=== PATIENT | female | born 1985 | race Two or more races ===

== ENCOUNTER 2024-03-24 06:40 | Emergency (ER) | payer MEDICAID, SELFPAY ==
[2024-03-24 06:48] VITALS: BP 116/78; PULSE 82; RESP 18; TEMP 36.7; O2SAT 99
[2024-03-24 07:00] VITALS: PULSE 88; RESP 22; O2SAT 98
[2024-03-24 07:05] VITALS: BMI 37.8
[2024-03-24] MEDS: ALPRazoLAM 0.25 MG TABLET PO (07:33)
--- NOTE | 2024-03-24 09:17 | PD.EDANX ---
ED Anxiety RME/HPI General Chief Complaint: Anxiety Stated Complaint: ANXIETY Time Seen by Provider: 03/24/24 06:56 Arrival date/time: 03/24/24 06:40 38-year-old female presents to the emergency department complaint of anxiety patient reports that she is under a lot of stress patient also does admit to using methamphetamine last used 2 days ago. Patient reports no fever no nausea no vomiting no chest pain or shortness of breath Limitations: no limitations Related Data Previous Rx's ?Medication ?Instructions ?Recorded acetaminophen 650 mg 650 mg PO Q8H PRN fever or pain 06/15/20 tablet,extended release #30 tabs aluminum-mag hydroxide-simethicone 10 ml PO Q6H PRN dyspepsia #3,000 08/23/20 200 mg-200 mg-20 mg/5 mL oral susp mL (Maalox Advanced) azithromycin 250 mg tablet See Rx Instructions PO .COMPLEX #6 05/17/21 tabs ibuprofen 600 mg tablet 600 mg PO QID PRN fever or pain 05/17/21 #30 tabs ibuprofen 800 mg tablet 800 mg PO TID PRN pain #30 tabs 10/11/22 naproxen 500 mg tablet 500 mg PO BID PRN pain #30 tabs 01/14/23 Allergies Allergy/AdvReac Type Severity Reaction Status Date / Time No Known Allergies Allergy Verified 10/02/22 16:12 Review of Systems Review of Systems Systems Reviewed: All systems reviewed, normal except as documented Constitutional Constitutional: Reports system reviewed and no additional complaints, except as documented, Denies fever(s) and Denies headache(s) Eyes Eyes: Reports system reviewed and no additional complaints, except as documented and Denies blurry vision ENT Ears, Nose, Mouth, and Throat: Reports system reviewed and no additional complaints, except as documented, Denies headache(s), Denies nasal congestion and Denies nasal discharge Cardiovascular Cardiovascular: Reports system reviewed and no additional complaints, except as documented, Denies chest pain and Denies dyspnea Respiratory Respiratory: Reports system reviewed and no additional complaints, except as documented, Denies chest congestion, Denies cough and Denies dyspnea Gastrointestinal Gastrointestinal: Reports system reviewed and no additional complaints, except as documented and Denies abdominal pain Integumentary/Breasts Skin/Breast: Reports system reviewed and no additional complaints, except as documented and Denies rash Neurologic Neurologic: Reports system reviewed and no additional complaints, except as documented, Reports as per HPI and Denies headache(s) Psychiatric Psychiatric: Reports system reviewed and no additional complaints, except as documented and Reports anxiety Past Medical History Past Medical History NEUROLOGIC: Negative Neurological Disorders or Seizures CARDIAC: Negative Cardiac Disorders or Congestive Heart Failure RESPIRATORY: Positive Asthma; Negative Chronic Obstructive Pulmonary Disease (COPD) GENITOURINARY: Negative Renal Disease ENDOCRINE: Negative Diabetes Mellitus Type 1 or Diabetes Mellitus Type 2 HEMATOLOGIC: Negative Sickle Cell Disease PSYCHO/SOCIAL: Positive Anxiety OTHER HISTORY: Negative Blood Transfusions, Blood Transfusion Reaction or Anesthesia Reactions Social History SMOKING STATUS: Never smoker SUBSTANCE USE: does not use ED Exam General Limitations: Present no limitations General appearance: Present alert and in no apparent distress Head Head exam: Present atraumatic, normocephalic and normal inspection Eye Eye exam: Present normal appearance, PERRL and EOMI; Absent conjunctival injection ENT ENT exam: Present normal exam, normal oropharynx and mucous membranes moist Neck Neck exam: Present normal inspection, full ROM and trachea midline Chest Chest inspection: Present normal inspection and symmetric chest wall rise Respiratory Respiratory exam: Present normal lung sounds bilaterally; Absent respiratory distress Cardiovascular Cardiovascular exam: Present regular rate, normal rhythm and normal heart sounds Abdominal Exam Abdominal exam: Present soft and normal bowel sounds; Absent distention or tenderness Extremities Exam Extremities exam: Present normal inspection and full ROM Back Exam Back exam: Present normal inspection and full ROM Neurological Exam Neurological exam: Present alert, oriented X3, CN II-XII intact, normal gait and reflexes normal; Absent motor sensory deficit Psychiatric Psychiatric exam: Present anxious; Absent manic, homicidal ideation or suicidal ideation Skin Skin exam: Present warm, dry, intact and normal color Course Quality Measures none Orders Category Date Time Status ALPRazoLAM [Xanax] Med 03/24/24 07:12 Discontinued 0.25 mg PO X1 ONE Vital Signs Vital signs: Vital Signs Temperature 98.1 F 03/24/24 06:48 Pulse Rate 82 03/24/24 06:48 Respiratory Rate 18 03/24/24 06:48 Blood Pressure 116/78 03/24/24 06:48 Pulse Oximetry (%) 99 03/24/24 06:48 Oxygen Delivery Method Room Air 03/24/24 06:48 O2 saturation 99% room air within normal limits Anxiety MDM Narrative MDM Narrative: 38-year-old female presents to the emergency department complaint of anxiety patient reports that she is under a lot of stress patient also does admit to using methamphetamine last used 2 days ago. Patient reports no fever no nausea no vomiting no chest pain or shortness of breath On exam patient appears anxious I had a conversation with the patient about her anxiety I explained to the patient she should refrain from drug use as this does not help her anxiety Patient was given a Xanax here time reevaluation patient reports that she feels better Patient discharged home in no distress to follow-up with primary care doctor in the next 24 to 48 hours and for any worsening symptoms to return to the ER immediately Patient data External records reviewed:: [facility] previous records Clinical information provided by:: patient Social determinants that could affect healthcare access:: substance use Patient has the following chronic illnesses:: Substance abuse How is presenting disease/condition affected by chronic disease/condition?: no chronic disease Evaluation data The following diagnostics were reviewed and interpreted by me:: other (specify) (N/A) Lab and/or radiology exams considered but not ordered:: Consider not ordered Interpretation Summary: N/A Medications / Prescriptions Medications or Prescriptions considered but not ordered:: Given Medication administrations:: Medication Administration History Discontinued Medications Alprazolam (Alprazolam 0.25 Mg Tablet) 0.25 mg PO X1 ONE Stop: 03/24/24 07:13 Last Admin: 03/24/24 07:33 Dose: 0.25 mg Documented By: DAA Consultations Consultation(s) initiated? (list below): No Diagnosis Differential diagnosis anxiety: hyperventilation, panic disorder and acute anxiety Most likely diagnosis given after review of the tests above:: Anxiety Admission Indicated Admission indicated?: not indicated Admission Request Was there a request for admission?: No Disposition Plan Disposition Plan: Discharge Discharge Attestation Discharge Attestation: The patient and all family members were given an opportunity to ask questions and understood the discharge instructions. Discharge instructions specifically effects, indications for sooner follow up or return to the emergency department, and the expected course of current diagnosis. Patient condition: Stable Discharge Plan Plan Patient Disposition: HOME (Self Care) Disposition Comment: Stable Prescriptions/Referrals Prescriptions/Med Rec: No Action acetaminophen 650 mg tablet extended release 650 mg PO Q8H PRN (Reason: fever or pain) Qty: 30 0RF Rx Instructions: swallow whole; do not chew/break/dissolve/open alum-mag hydroxide-simeth [Maalox Advanced] 200-200-20 mg/5 mL suspension 10 ml PO Q6H PRN (Reason: dyspepsia) Qty: 3000 0RF azithromycin 250 mg tablet See Rx Instructions .ROUTE .COMPLEX Qty: 6 0RF Rx Instructions: For 250 mg dose pack: take 500 mg today (day 1), then 250 mg for 4 days (days 2-5) ibuprofen 600 mg tablet 600 mg PO QID PRN (Reason: fever or pain) Qty: 30 0RF ibuprofen 800 mg tablet 800 mg PO TID PRN (Reason: pain) Qty: 30 0RF naproxen 500 mg tablet 500 mg PO BID PRN (Reason: pain) Qty: 30 0RF Referrals: Virgilio Mack MD [Primary Care Provider] - In 1 week Problem List Clinical Impression: Anxiety reaction Patient/Caregiver Discharge Instructions Education Materials: ED Anxiety Reaction Additional Instructions: Please follow up with your primary care doctor in the next 24-48hrs for any worsening symptoms return here immediately Print Language: Urdu Stand Alone Forms: Che Award Info., Patient Portal Info Letter PA/SHAHIDA Supervising Physician ALISHA/SHAHIDA Supervising Physician: Dr. Romero
[2024-03-24 09:18] VITALS: BP 116/84; PULSE 77; RESP 17; TEMP 36.5; O2SAT 99
== END 2024-03-24 10:41 | disposition home or self-care (01) ==
PROVIDERS: Emergency Provider Emergency Medicine; PCP Family Medicine
DX: F41.1 Generalized anxiety disorder (principal)
CPT/HCPCS: 99283; A9270

== ENCOUNTER 2024-04-11 21:39 | Emergency (ER) | payer MEDICAID, SELFPAY ==
[2024-04-11 21:40] VITALS: BP 111/67; PULSE 117; RESP 18; TEMP 38.3; O2SAT 96; BMI 40.4
[2024-04-11 21:41] VITALS: PULSE 135; RESP 22; O2SAT 99
--- NOTE | 2024-04-11 22:13 | PD.EDURI ---
Upper Respiratory Inf. RME/HPI General Chief Complaint: Flu Like Symptoms Stated Complaint: BODYACHES/SOB Time Seen by Provider: 04/11/24 22:13 Arrival date/time: 04/11/24 21:39 RME / HPI RME / HPI Narrative: Dr. Darling?s Main ED Evaluation: 38yo female with a history of asthma presents to the ED for a chief complaint of chest pain. Patient states she's had intermittent chest pain when she breathes for the last 4 days. She endorses associated shortness of breath, intermittent wheezing, fever, chills, and a productive cough. She states she's taken Tylenol without any alleviation of symptoms, so she came in for evaluation. She denies any other associated symptoms. No known allergies. Related Data Previous Rx's ?Medication ?Instructions ?Recorded acetaminophen 650 mg 650 mg PO Q8H PRN fever or pain 06/15/20 tablet,extended release #30 tabs aluminum-mag hydroxide-simethicone 10 ml PO Q6H PRN dyspepsia #3,000 08/23/20 200 mg-200 mg-20 mg/5 mL oral susp mL (Maalox Advanced) azithromycin 250 mg tablet See Rx Instructions PO .COMPLEX #6 05/17/21 tabs ibuprofen 600 mg tablet 600 mg PO QID PRN fever or pain 05/17/21 #30 tabs ibuprofen 800 mg tablet 800 mg PO TID PRN pain #30 tabs 10/11/22 naproxen 500 mg tablet 500 mg PO BID PRN pain #30 tabs 01/14/23 albuterol sulfate 90 mcg/actuation 1 inh inhalation QID PRN shortness 04/11/24 aerosol inhaler of breath or wheezing #8.5 grams ibuprofen 600 mg tablet 600 mg PO Q6H PRN pain #30 tabs 04/11/24 Allergies Allergy/AdvReac Type Severity Reaction Status Date / Time No Known Allergies Allergy Verified 10/02/22 16:12 Review of Systems Review of Systems Systems Reviewed: All systems reviewed, normal except as documented Narrative Review of Systems: Gen: + fever, + chills, no weight loss EYES: No discharge, no visual changes, no pain HEENT: No ear pain, no congestion, no sore throat PULM: + shortness of breath, + cough, no congestion, + wheezing CV: + chest pain, no dyspnea on exertion, no palpitations GI: No nausea, no vomiting, no diarrhea, no pain, no constipation : No frequency, no urgency, no dysuria Musc/skel: No joint pain, no back pain Skin: No rash Psyc: No hallucinations, no depression Heme/Lymph: No easy bleeding or bruising tendencies Neuro: No weakness, no headache Past Medical History Past Medical History NEUROLOGIC: Negative Neurological Disorders or Seizures CARDIAC: Negative Cardiac Disorders or Congestive Heart Failure RESPIRATORY: Positive Asthma; Negative Chronic Obstructive Pulmonary Disease (COPD) GENITOURINARY: Negative Renal Disease ENDOCRINE: Negative Diabetes Mellitus Type 1 or Diabetes Mellitus Type 2 HEMATOLOGIC: Negative Sickle Cell Disease PSYCHO/SOCIAL: Positive Anxiety OTHER HISTORY: Negative Blood Transfusions, Blood Transfusion Reaction or Anesthesia Reactions Social History SMOKING STATUS: Current some day smoker SUBSTANCE USE: does not use ED Exam Narrative Physical exam: GENERAL APPEARANCE: alert and oriented x 4, well-developed, well-nourished, no acute distress HEENT: Normocephalic, atraumatic; pupils equal, round, reactive to light; EOMI; mucous membranes pink, moist; oropharynx clear NECK: Supple LUNGS: CTABL; no wheezes, no rales, no rhonchi HEART: Regular rate, regular rhythm; normal S1, S2; no murmurs ABDOMEN: non distended; normal BS; soft, no tenderness, no guarding, no rebound; no masses, no organomegaly, no hernia BACK: no CVA tenderness EXTREMITIES: atraumatic; no edema NEUROLOGIC: awake; alert and oriented x4; cranial nerves II-XII grossly intact; no focal sensory or motor deficits PSYCHIATRIC: appropriate mood and affect SKIN: warm, dry, normal color; no rashes Course Course Course Narrative: HCG is negative - Toradol ordered. Quality Measures none Orders Category Date Time Status Bedside COVID-19 Antigen Test NOW Care 04/11/24 21:58 Active Bedside Influenza A&B Antigen Test NOW Care 04/11/24 21:58 Completed HCG,Qualitative Serum Stat Lab 04/11/24 22:26 Completed ALBUTEROL RT 0.5ml [Proventil Rt 0.5ml] Med 04/11/24 23:12 Discontinued 2.5 mg INH X1 ONE HYDROcodone*/APAP 5/325 [Point 5/325] Med 04/11/24 22:20 Discontinued 1 tab PO X1 ONE Ketorolac Inj [Toradol Inj] Med 04/11/24 23:04 Discontinued 30 mg IM X1 ONE Sodium Chloride Rt Mellissa 0.9% [NS Rt Mellissa 0.9%] Med 04/11/24 23:12 Active 3 ml INH PRN PRN Vital Signs Vital signs: Vital Signs Temperature 100.9 F H 04/11/24 21:40 Pulse Rate 117 H 04/11/24 21:40 Respiratory Rate 18 04/11/24 21:40 Blood Pressure 111/67 04/11/24 21:40 Pulse Oximetry (%) 96 04/11/24 21:40 Oxygen Delivery Method Room Air 04/11/24 21:40 Pulse ox is 96% on room air, which is normal according to my interpretation. Upper Respiratory Infection MDM Narrative MDM Narrative:: Scribe Attestation: 04/11/24 - Whit Ramsay am scribing for and in the presence of Dr. Darling. Patient data External records reviewed:: [facility] previous records (Per chart review, patient was seen here on 03/24/24 for anxiety.) Clinical information provided by:: patient Social determinants that could affect healthcare access:: mental health Patient has the following chronic illnesses:: none How is presenting disease/condition affected by chronic disease/condition?: no chronic disease Evaluation data The following diagnostics were reviewed and interpreted by me:: lab results Lab and/or radiology exams considered but not ordered:: none Interpretation Summary: Bedside COVID is negative, Influenza B is positive, HCG is negative, according to my interpretation. Medications / Prescriptions Medications or Prescriptions considered but not ordered:: none Medication administrations:: Medication Administration History Sodium Chloride (Sodium Chloride Rt Mellissa 0.9% 3 Ml Nebu) 3 ml INH PRN PRN PRN Reason: SOLN Stop: 05/11/24 23:11 Last Admin: 04/11/24 23:34 Dose: 3 ml Documented By: SC Discontinued Medications Hydrocodone Bitart/Acetaminophen (Hydrocodone/Apap 5/325 Tablet) 1 tab PO X1 ONE Stop: 04/11/24 22:21 Last Admin: 04/11/24 22:25 Dose: 1 tab Documented By: DB Albuterol (Albuterol Rt 2.5 Mg/0.5 Ml Nebu) 2.5 mg INH X1 ONE Stop: 04/11/24 23:13 Last Admin: 04/11/24 23:34 Dose: 2.5 mg Documented By: SC Ketorolac Tromethamine (Ketorolac Inj 30 Mg/Ml Vial) 30 mg IM X1 ONE Stop: 04/11/24 23:05 Last Admin: 04/11/24 23:11 Dose: 30 mg Documented By: DB see above Consultations Consultation(s) initiated? (list below): No Diagnosis Upper Respiratory Differential Diagnosis: upper respiratory infection, viral infection, bronchitis, influenza and other (COVID, asthma exacerbation) Most likely diagnosis given after review of the tests above:: see below Admission Indicated Admission indicated?: not indicated Admission Request Was there a request for admission?: No Disposition Plan Disposition Plan: Discharge Discharge Attestation Discharge Attestation: The patient and all family members were given an opportunity to ask questions and understood the discharge instructions. Discharge instructions specifically effects, indications for sooner follow up or return to the emergency department, and the expected course of current diagnosis. Patient condition: Stable Discharge Plan Plan Patient Disposition: HOME (Self Care) Patient condition on transfer: Stable Prescriptions/Referrals Prescriptions/Med Rec: New ibuprofen 600 mg tablet 600 mg PO Q6H PRN (Reason: pain) Qty: 30 0RF albuterol sulfate 90 mcg/actuation HFA aerosol inhaler 1 inh inhalation QID PRN (Reason: shortness of breath or wheezing) Qty: 8.5 0RF No Action acetaminophen 650 mg tablet extended release 650 mg PO Q8H PRN (Reason: fever or pain) Qty: 30 0RF Rx Instructions: swallow whole; do not chew/break/dissolve/open alum-mag hydroxide-simeth [Maalox Advanced] 200-200-20 mg/5 mL suspension 10 ml PO Q6H PRN (Reason: dyspepsia) Qty: 3000 0RF azithromycin 250 mg tablet See Rx Instructions .ROUTE .COMPLEX Qty: 6 0RF Rx Instructions: For 250 mg dose pack: take 500 mg today (day 1), then 250 mg for 4 days (days 2-5) ibuprofen 600 mg tablet 600 mg PO QID PRN (Reason: fever or pain) Qty: 30 0RF ibuprofen 800 mg tablet 800 mg PO TID PRN (Reason: pain) Qty: 30 0RF naproxen 500 mg tablet 500 mg PO BID PRN (Reason: pain) Qty: 30 0RF Referrals: Virgilio Mack MD [Primary Care Provider] - In 1 week Problem List Clinical Impression: Influenza B Patient/Caregiver Discharge Instructions Education Materials: ED Influenza (Adult) Print Language: Estonian Stand Alone Forms: Che Award Info., Patient Portal Info Letter
[2024-04-11] MEDS: HYDROcodone/APAP 5/325 TABLET 1 TAB PO (22:25)
[2024-04-11 22:59] LABS: HCG,Qualitative Serum Negative
[2024-04-11 23:02] VITALS: BP 111/64; PULSE 106; RESP 16; TEMP 37.2; O2SAT 98
[2024-04-11] MEDS: KETOROLAC INJ 30 MG/ML VIAL IM (23:11)
[2024-04-11 23:34] VITALS: PULSE 105; PULSE 106; RESP 20; O2SAT 96
[2024-04-11] MEDS: ALBUTEROL RT 2.5 MG/0.5 ML NEBU INH (23:34)
[2024-04-11] MEDS: SODIUM CHLORIDE RT SOL 0.9% 3 ML NEBU INH (23:34)
[2024-04-12 00:19] VITALS: BP 105/77; PULSE 87; RESP 16; TEMP 37.1; O2SAT 99
== END 2024-04-12 00:20 | disposition home or self-care (01) ==
PROVIDERS: Emergency Provider Emergency Medicine; PCP Family Medicine
DX: J10.1 Influenza due to other identified influenza virus with other respiratory manifestations (principal); F17.210 Nicotine dependence, cigarettes, uncomplicated
CPT/HCPCS: 36415; 84703; 87400; 87811; 94640; 96372; 99283; J1885; A9270

== ENCOUNTER 2024-09-05 23:08 | Emergency (ER) | payer MEDICAID, SELFPAY ==
[2024-09-05 23:08] VITALS: BMI 40.4
[2024-09-06 00:25] VITALS: BP 144/91; PULSE 85; RESP 18; TEMP 36.6; O2SAT 97
[2024-09-06] MEDS: ONDANSETRON ODT 4 MG TABRAP PO (01:09)
[2024-09-06] MEDS: FAMOTIDINE 20 MG TABLET 40 MG PO (01:10)
[2024-09-06] MEDS: DICYCLOMINE 10 MG CAPSULE PO (01:10)
[2024-09-06 01:18] LABS: Basophils # (Auto) 0.1 Thou/mm3 (0.0-0.2); Basophils % (Auto) 1 % (0-2.5); Eosinophils # (Auto) 0.4 Thou/mm3 (0.0-0.5); Eosinophils % (Auto) 4 % (0-10); Hematocrit 43.8 % (36.0-46.0); Hemoglobin 14.9 g/dL (12.0-16.0); Immature Granulocytes % (Auto) 0 % (0-0); Immature Granulocytes Auto 0.03 Thou/mm3 (0.00-0.00); Lymphocytes # (Auto) 2.8 Thou/mm3 (1.0-4.8); Lymphocytes % (Auto) 27 % (10-50); Mean Corpuscular Hemoglobin 27.7 pg (25.0-35.0); Mean Corpuscular Volume 81 fL (80-100); Monocytes # (Auto) 0.7 Thou/mm3 (0.0-0.8); Monocytes % (Auto) 7 % (0-12); Neutrophils # (Auto) 6.2 Thou/mm3 (1.8-7.7); Neutrophils % (Auto) 61 % (37-80); Nucleated Red Blood Cell % 0 /100 WBC (0); Platelet Count 397 Thou/mm3 (140-440); RDW Standard Deviation 42.2 fL (36.4-46.3); Red Blood Count 5.38 Miln/mm3 (4.00-5.20); White Blood Count 10.1 Thou/mm3 (3.6-11.0)
[2024-09-06 01:21] LABS: Collection Type, Urine Clean Catch
[2024-09-06 01:38] LABS: Alanine Aminotransferase 23 U/L (10-49); Albumin, Serum 4.7 gm/dL (3.5-5.0); Albumin/Globulin Ratio 1.4 (1.2-2.2); Alkaline Phosphatase 125 U/L (46-116); Anion Gap 7 (7-16); Aspartate Amino Transferase 21 U/L (0-34); BUN/Creatinine Ratio 8 Ratio (12-20); Bilirubin,Total 0.4 mg/dL (0.3-1.2); Blood Urea Nitrogen 6 mg/dL (9-23); Calcium 9.3 mg/dL (8.3-10.6); Calcium (Corrected) 9.3 mg/dL (8.5-10.1); Carbon Dioxide 29.6 mMol/L (20.0-31.0); Chloride 102 mMol/L (98-107); Creatinine (Component) 0.8 mg/dL (0.6-1.3); Estimated Creatinine Clearance 93.6 mL/min (>60); Globulin 3.3 gm/dL (2.3-3.5); Glucose 99 mg/dL (74-106); Lipase 32 U/L (12-53); Osmolality,Calculated 275 (275-295); Potassium 3.4 mMol/L (3.4-5.1); Sodium 139 mMol/L (136-145); eGFR > 60 See Note
[2024-09-06 01:43] LABS: Bacteria,Urine 4+; Bilirubin,Urine Negative (Negative); Blood,Urine Negative (Negative); Color,Urine Lt-Yellow (Lt Yel-Yel); Glucose, Urine Negative (Negative); Ketones,Urine Trace (Negative); Leukocyte Esterase,Urine Positive (Negative); Nitrite,Urine Negative (Negative); Protein,Urine Negative (Neg - Trace); RBC,Urine 100 /hpf (0-3); Specific Gravity,Urine 1.011 (1.001-1.035); Squamous Epithelial Cell,Urine 16 /hpf (0-5); Urobilinogen,Urine Negative mg/dL (0.0-1.0); WBC,Urine 45 /hpf (0-5)
[2024-09-06 01:44] LABS: Clarity,Urine Turbid (Clear/Hazy)
[2024-09-06 02:01] LABS: Amphetamine/Methamp Scrn,U Positive (Negative); Barbiturate Screen,Urine Negative (Negative); Benzodiazepines Screen,Urine Negative (Negative); Benzoylecgonine Screen, Ur Negative (Negative); Fentanyl Screen,Urine Negative (Negative); Opiate Screen,Urine Negative (Negative); THC Screen,Urine Negative (Negative)
[2024-09-06 02:17] LABS: HCG Qualitative,Urine Negative
--- NOTE | 2024-09-06 05:55 | EDNOTE_ITS ---
Nausea/Vomit./Diarrhea-RME/HPI General Chief complaint: Nausea/Vomiting/Diarrhea Stated complaint: VOMITING X2 DAYS Time Seen by Provider: 09/06/24 00:47 Arrival date/time: 09/05/24 23:08 39F with history of meth use, anxiety, and asthma presents to ED with 2 days of N/V, ab cramping, and non-bloody diarrhea. Patient denies dysuria and vaginal bleeding. Limitations: no limitations Related Data Previous Rx's ?Medication ?Instructions ?Recorded acetaminophen 650 mg 650 mg PO Q8H PRN fever or p ain 06/15/20 tablet,extended release #30 tabs aluminum-mag hydroxide-simethicone 10 ml PO Q6H PRN dy spepsia #3,000 08/23/20 200 mg-200 mg-20 mg/5 mL oral susp mL (Maalox Advanced) azithromycin 250 mg tablet See Rx Instructions PO .COM PLEX #6 05/17/21 tabs ibuprofen 600 mg tablet 600 mg PO QID PRN fever or p ain 05/17/21 #30 tabs ibuprofen 800 mg tablet 800 mg PO TID PRN pain #30 t abs 10/11/22 naproxen 500 mg tablet 500 mg PO BID PRN pain #30 t abs 01/14/23 albuterol sulfate 90 mcg/actuation 1 inh inhalation QI D PRN shortness 04/11/24 aerosol inhaler of breath or wheezing #8.5 g lisa ibuprofen 600 mg tablet 600 mg PO Q6H PRN pain #30 t abs 04/11/24 ondansetron 4 mg disintegrating 4 mg PO Q8H PRN nausea and 09/06/24 tablet vomiting #14 tabs Allergies Allergy/AdvReac Type Severity Reaction Status Date / Time No Known Allergies Allergy Verified 10/02/22 16:12 Review of Systems Review of Systems Systems Reviewed: All systems reviewed, normal except as documented Constitutional Constitutional: Reports system reviewed and no additional complaints, except as documented, Denies fever(s) and Denies headache(s) ENT Ears, Nose, Mouth, and Throat: Denies disequilibrium and Denies headache(s) Cardiovascular Cardiovascular: Reports system reviewed and no additional complaints, except as documented, Denies chest pain and Denies dyspnea Respiratory Respiratory: Reports system reviewed and no additional complaints, except as documented, Denies cough and Denies dyspnea Gastrointestinal Gastrointestinal: Reports system reviewed and no additional complaints, except as documented, Reports as per HPI, Reports abdominal pain, Reports diarrhea, Reports nausea and Reports vomiting Neurologic Neurologic: Reports system reviewed and no additional complaints, except as documented, Denies confusion, Denies disequilibrium and Denies headache(s) Psychiatric Psychiatric: Denies confusion Past Medical History Past Medical History NEUROLOGIC: Negative Neurological Disorders or Seizures CARDIAC: Negative Cardiac Disorders or Congestive Heart Failure RESPIRATORY: Positive Asthma; Negative Chronic Obstructive Pulmonary Disease (COPD) GENITOURINARY: Negative Renal Disease ENDOCRINE: Negative Diabetes Mellitus Type 1 or Diabetes Mellitus Type 2 HEMATOLOGIC: Negative Sickle Cell Disease PSYCHO/SOCIAL: Positive Anxiety OTHER HISTORY: Negative Blood Transfusions, Blood Transfusion Reaction or Anesthesia Reactions Social History SMOKING STATUS: Never smoker SUBSTANCE USE: does not use ED Exam General Limitations: Present no limitations General appearance: Present alert and in no apparent distress Head Head exam: Present atraumatic Eye Eye exam: Present normal appearance, PERRL and EOMI ENT ENT exam: Present normal exam, normal oropharynx and mucous membranes moist Neck Neck exam: Present normal inspection, full ROM and trachea midline Chest Chest inspection: Present normal inspection and symmetric chest wall rise Respiratory Respiratory exam: Present normal lung sounds bilaterally Cardiovascular Cardiovascular exam: Present regular rate, normal rhythm and normal heart sounds Abdominal Exam Abdominal exam: Present soft and normal bowel sounds Extremities Exam Extremities exam: Present normal inspection and full ROM Back Exam Back exam: Present normal inspection and full ROM Neurological Exam Neurological exam: Present alert, oriented X3 and CN II-XII intact Psychiatric Psychiatric exam: Present normal affect and normal mood Skin Skin exam: Present warm, dry, intact and normal color Course Quality Measures none Orders Category Date Time Status CBC Stat Lab 09/06/24 01:02 Completed CMP [Comprehensive Metabolic Panel] Stat Lab 09/06/24 01:02 Completed Drug Screen,Urine Stat Lab 09/06/24 01:09 Completed HCG Qualitative,Urine Stat Lab 09/06/24 01:09 Completed Lipase Stat Lab 09/06/24 01:02 Completed UA [Urinalysis] Stat Lab 09/06/24 01:09 Completed Dicyclomine [Bentyl] Med 09/06/24 00:52 Discontinued 10 mg PO X1 ONE Famotidine [Pepcid] Med 09/06/24 00:52 Discontinued 40 mg PO X1 ONE Ondansetron Odt [Zofran Odt] Med 09/06/24 00:52 Discontinued 4 mg PO X1 ONE Vital Signs Vital signs: Vital Signs Temperature 98 F 09/06/24 00:25 Pulse Rate 85 09/06/24 00:25 Respiratory Rate 18 09/06/24 00:25 Blood Pressure 144/91 H 09/06/24 00:25 Pulse Oximetry (%) 97 09/06/24 00:25 Oxygen Delivery Method Room Air 09/06/24 00:25 O2 at 97% on RA and WNLs Nausea/Vomiting/Diarrhea MDM Narrative MDM Narrative:: 39F with history of meth use, anxiety, and asthma presents to ED with 2 days of N/V, ab cramping, and non-bloody diarrhea. Patient denies dysuria and vaginal bleeding. Physical exam reveals no ab tenderness. Patient is afebrile, calm, and alert. No leukocytosis. CMP unremarkable. Lipase normal. UA contaminated. HCG neg. PO challenge passed. Patient data External records reviewed:: [facility] previous records Clinical information provided by:: patient Social determinants that could affect healthcare access:: substance use Patient has the following chronic illnesses:: meth use, anxiety, and asthma How is presenting disease/condition affected by chronic disease/condition?: exacerbated by Evaluation data The following diagnostics were reviewed and interpreted by me:: lab results Lab and/or radiology exams considered but not ordered:: ordered Interpretation Summary: above Medications / Prescriptions Medications / Prescriptions considered but not ordered:: ordered Medication administrations:: Medication Administration History Discontinued Medications Dicyclomine HCl (Dicyclomine 10 Mg Capsule) 10 mg PO X1 ONE Stop: 09/06/24 00:53 Last Admin: 09/06/24 01:10 Dose: 10 mg Documented By: THOMAS Famotidine (Famotidine 20 Mg Tablet) 40 mg PO X1 ONE Stop: 09/06/24 00:53 Last Admin: 09/06/24 01:10 Dose: 40 mg Documented By: THOMAS Ondansetron HCl (Ondansetron Odt 4 Mg Tabrap) 4 mg PO X1 ONE; Protocol Stop: 09/06/24 00:53 Last Admin: 09/06/24 01:09 Dose: 4 mg Documented By: THOMAS above Consultations Consultation(s) initiated? (list below): No Diagnosis Nausea Differential Diagnosis: traveler's diarrhea, food poisoning, gastroenteritis, clostridium difficile infection, drug-induced nausea and vomiting and dehydration Most likely diagnosis given after review of the tests above:: gastroenteritis Admission Indicated Admission indicated?: not indicated Admission Request Was there a request for admission?: No Disposition Plan Disposition Plan: Discharge Discharge Attestation Discharge Attestation: The patient and all family members were given an opportunity to ask questions and understood the discharge instructions. Discharge instructions specifically effects, indications for sooner follow up or return to the emergency department, and the expected course of current diagnosis. Patient condition: Stable Discharge Plan Plan Patient Disposition: HOME (Self Care) Disposition Comment: Stable Prescriptions/Referrals Prescriptions/Med Rec: New ondansetron 4 mg tablet,disintegrating 4 mg PO Q8H PRN (Reason: nausea and vomiting) Qty: 14 0RF No Action acetaminophen 650 mg tablet extended release 650 mg PO Q8H PRN (Reason: fever or pain) Qty: 30 0RF Rx Instructions: swallow whole; do not chew/break/dissolve/open alum-mag hydroxide-simeth [Maalox Advanced] 200-200-20 mg/5 mL suspension 10 ml PO Q6H PRN (Reason: dyspepsia) Qty: 3000 0RF azithromycin 250 mg tablet See Rx Instructions .ROUTE .COMPLEX Qty: 6 0RF Rx Instructions: For 250 mg dose pack: take 500 mg today (day 1), then 250 mg for 4 days (days 2-5) ibuprofen 600 mg tablet 600 mg PO QID PRN (Reason: fever or pain) Qty: 30 0RF ibuprofen 800 mg tablet 800 mg PO TID PRN (Reason: pain) Qty: 30 0RF naproxen 500 mg tablet 500 mg PO BID PRN (Reason: pain) Qty: 30 0RF ibuprofen 600 mg tablet 600 mg PO Q6H PRN (Reason: pain) Qty: 30 0RF albuterol sulfate 90 mcg/actuation HFA aerosol inhaler 1 inh inhalation QID PRN (Reason: shortness of breath or wheezing) Qty: 8.5 0RF Referrals: No Primary/Family,Physician [Primary Care Provider] - In 1 week Problem List Clinical Impression: Gastroenteritis Patient/Caregiver Discharge Instructions Education Materials: ED Diarrhea, Viral (Adult) Additional Instructions: Please follow-up with PCP within 24-48 hours and return immediately if symptoms worsen. Keep hydrated. Print Language: Kinyarwanda Stand Alone Forms: Patient Portal Info Letter PA/SHAHIDA Supervising Physician PA/STUDY ASSISTANT Supervising Physician: Dr. Storey
== END 2024-09-06 03:29 | disposition home or self-care (01) ==
PROVIDERS: Physician Assistant; Emergency Provider Emergency Medicine
DX: K52.9 Noninfective gastroenteritis and colitis, unspecified (principal)
CPT/HCPCS: 36415; 80053; 80307; 81001; 81025; 83690; 85025; 99283; Q0162; A9270

== ENCOUNTER 2024-09-21 22:01 | Emergency (ER) | payer MEDICAID, SELFPAY ==
[2024-09-21 22:05] VITALS: BMI 40.4
[2024-09-21 22:06] VITALS: BP 136/91; PULSE 84; RESP 18; TEMP 36.7; O2SAT 96
--- NOTE | 2024-09-21 22:25 | EDNOTE_ITS ---
ED General RME/HPI General Chief complaint: Skin/Abscess/Foreign Body Stated complaint: poss FB in L ear Time Seen by Provider: 09/21/24 22:11 Arrival date/time: 09/21/24 22:01 39-year-old female presents to the ED with a complaint of left ear possible foreign body. She had her earbuds in and went to remove them, the plastic earpiece was missing. She is unable to find it and believes it to be still stuck in the ear canal. She has increasing pain to the left ear area especially with movement of the ear. She has had no drainage. Mode of arrival: ambulatory Limitations: no limitations Related Data Previous Rx's ?Medication ?Instructions ?Recorded acetaminophen 650 mg 650 mg PO Q8H PRN fever or p ain 06/15/20 tablet,extended release #30 tabs aluminum-mag hydroxide-simethicone 10 ml PO Q6H PRN dy spepsia #3,000 08/23/20 200 mg-200 mg-20 mg/5 mL oral susp mL (Maalox Advanced) azithromycin 250 mg tablet See Rx Instructions PO .COM PLEX #6 05/17/21 tabs ibuprofen 600 mg tablet 600 mg PO QID PRN fever or p ain 05/17/21 #30 tabs ibuprofen 800 mg tablet 800 mg PO TID PRN pain #30 t abs 10/11/22 naproxen 500 mg tablet 500 mg PO BID PRN pain #30 t abs 01/14/23 albuterol sulfate 90 mcg/actuation 1 inh inhalation QI D PRN shortness 04/11/24 aerosol inhaler of breath or wheezing #8.5 g lisa ibuprofen 600 mg tablet 600 mg PO Q6H PRN pain #30 t abs 04/11/24 ondansetron 4 mg disintegrating 4 mg PO Q8H PRN nausea and 09/06/24 tablet vomiting #14 tabs ibuprofen 600 mg tablet 600 mg PO Q8H PRN pain #30 t abs 09/21/24 [id number] 3.3 4 drp otic (ear) QID O titis 09/21/24 mg-3 mg-10 mg-0.5 mg/mL ear externa #10 mL drops,susp (Cortisporin-TC) Allergies Allergy/AdvReac Type Severity Reaction Status Date / Time No Known Allergies Allergy Verified 09/21/24 22:04 Review of Systems Review of Systems Systems Reviewed: All systems reviewed, normal except as documented Past Medical History Past Medical History NEUROLOGIC: Negative Neurological Disorders or Seizures CARDIAC: Negative Cardiac Disorders or Congestive Heart Failure RESPIRATORY: Positive Asthma; Negative Chronic Obstructive Pulmonary Disease (COPD) GENITOURINARY: Negative Renal Disease ENDOCRINE: Negative Diabetes Mellitus Type 1 or Diabetes Mellitus Type 2 HEMATOLOGIC: Negative Sickle Cell Disease PSYCHO/SOCIAL: Positive Anxiety OTHER HISTORY: Negative Blood Transfusions, Blood Transfusion Reaction or Anesthesia Reactions Social History SMOKING STATUS: Never smoker SUBSTANCE USE: does not use ED Exam Narrative Physical exam: Exam reveals 39-year-old female, no acute distress, nontoxic and afebrile. Right canal and TM clear. Left canal without foreign body in the canal and TM clear. Mild pain with traguS and pinna movement. No preauricular or cervical adenopathy. General Limitations: Present no limitations Course Course Course Narrative: Patient was given ibuprofen 600 mg p.o. as well as Cortisporin otic solution to the left ear. Quality Measures none Orders Category Date Time Status Ibuprofen Tab [Motrin Tab] Med 09/21/24 22:32 Discontinued 600 mg PO X1 ONE Joe/Poly/Hc Otic Mellissa [Cortisporin Otic Mellissa] Med 09/21/24 22:28 Discontinued 4 drop LEFT EAR X1 ONE Vital Signs Vital signs: Vital Signs Temperature 98.1 F 09/21/24 22:06 Pulse Rate 84 09/21/24 22:06 Respiratory Rate 18 09/21/24 22:06 Blood Pressure 136/91 H 09/21/24 22:06 Pulse Oximetry (%) 96 09/21/24 22:06 Oxygen Delivery Method CPAP 09/21/24 22:06 Discharge Plan Plan Patient Disposition: HOME (Self Care) Discharge Disposition comment: Stable and improved Prescriptions/Referrals Prescriptions/Med Rec: New Cortisporin-TC 3.3-3-10-0.5 mg/mL drops,suspension 4 drp otic (ear) QID Qty: 10 0RF ibuprofen 600 mg tablet 600 mg PO Q8H PRN (Reason: pain) Qty: 30 0RF No Action acetaminophen 650 mg tablet extended release 650 mg PO Q8H PRN (Reason: fever or pain) Qty: 30 0RF Rx Instructions: swallow whole; do not chew/break/dissolve/open alum-mag hydroxide-simeth [Maalox Advanced] 200-200-20 mg/5 mL suspension 10 ml PO Q6H PRN (Reason: dyspepsia) Qty: 3000 0RF azithromycin 250 mg tablet See Rx Instructions .ROUTE .COMPLEX Qty: 6 0RF Rx Instructions: For 250 mg dose pack: take 500 mg today (day 1), then 250 mg for 4 days (days 2-5) ibuprofen 600 mg tablet 600 mg PO QID PRN (Reason: fever or pain) Qty: 30 0RF ibuprofen 800 mg tablet 800 mg PO TID PRN (Reason: pain) Qty: 30 0RF naproxen 500 mg tablet 500 mg PO BID PRN (Reason: pain) Qty: 30 0RF ibuprofen 600 mg tablet 600 mg PO Q6H PRN (Reason: pain) Qty: 30 0RF albuterol sulfate 90 mcg/actuation HFA aerosol inhaler 1 inh inhalation QID PRN (Reason: shortness of breath or wheezing) Qty: 8.5 0RF ondansetron 4 mg tablet,disintegrating 4 mg PO Q8H PRN (Reason: nausea and vomiting) Qty: 14 0RF Referrals: Virgilio Mack MD [Primary Care Provider] - In 1 week Problem List Clinical Impression: Otitis externa of left ear Patient/Caregiver Discharge Instructions Education Materials: ED External Ear Infection (Adult) Additional Instructions: Follow-up with your primary care physician in 24 to 48 hours. Return to the ED for any new or worsening symptoms. Print Language: Italian Stand Alone Forms: Che Award Info., Patient Portal Info Letter PA/ARC CUTTER Supervising Physician PA/ARC CUTTER Supervising Physician: Dr Ruano MDM Narrative [facility] hospital course (for use when minimal MDM required): 39-year-old female presents to the ED with a complaint of left ear possible foreign body. She had her earbuds in and went to remove them, the plastic earpiece was missing. She is unable to find it and believes it to be still st uck in the ear canal. She has increasing pain to the left ear area especially with movement of the ear. She has had no drainage. Exam reveals 39-year-old female, no acute distress, nontoxic and afebrile. Right canal and TM clear. Left canal without foreign body in the canal and TM clear. Mild pain with tragus and pinna movement. No preauricular or cervical adenopathy. Clinical Information Provided by: patient Medical Records reviewed None Meds/Rx considered, not ordered None Labs/Rad/Tests considered, not ordered None Chronic Illness/Social Conditions which may negatively complicate care or outcome(s)-explain: None or not applicable EKG EKG not done Labs Labs: none Imaging Imaging interpretation: none or see narrative above Medication Administration(s) Medication Administration History Discontinued Medications Ibuprofen (Ibuprofen Tab 600 Mg Tablet) 600 mg PO X1 ONE Stop: 09/21/24 22:33 Last Admin: 09/21/24 22:40 Dose: 600 mg Documented By: THOMAS Neomycin/Polymyxin/Hydrocortisone (Joe/Poly/Hc (Cortisporin) Otic Mellissa 10 Ml Btl) 4 drop LEFT EAR X1 ONE Stop: 09/21/24 22:29 Last Admin: 09/21/24 22:41 Dose: 4 drops Documented By: THOMAS Comments: left ear As noted above Diagnosis Differential Diagnosis ED Complaint MDM: Foreign body left ear canal, left ear canal abrasion, otitis externa Diagnoses ruled out and/or further discussions: Foreign body left ear canal
[2024-09-21] MEDS: IBUPROFEN TAB 600 MG TABLET PO (22:40)
[2024-09-21] MEDS: NEO/POLY/HC (Cortisporin) OTIC SOL 10 ML BTL 4 DROP LEFT EAR (22:41)
== END 2024-09-21 22:46 | disposition home or self-care (01) ==
PROVIDERS: Emergency Provider Emergency Medicine; PCP Family Medicine
DX: H60.92 Unspecified otitis externa, left ear (principal)
CPT/HCPCS: 99282; A9270

== ENCOUNTER 2025-02-07 12:38 | Emergency (ER) | payer MEDICAID, SELFPAY ==
[2025-02-07 12:39] VITALS: BMI 42.4
[2025-02-07 14:01] VITALS: BP 119/80; PULSE 86; RESP 18; TEMP 37; O2SAT 98
--- NOTE | 2025-02-07 14:47 | EDNOTE_ITS ---
ED General RME/HPI General Chief complaint: General Adult/Misc Complain Stated complaint: LIGHTHEADED X4 DAYS Time Seen by Provider: 02/07/25 14:03 Arrival date/time: 02/07/25 12:38 This is a 39-year-old female that comes in with complaints of anxiety. Patient states she was taking BuSpar before but is no longer taking it patient denies chest pain shortness of breath. 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 Patient states that the other caretakers have not been available and she has been having to take care of patient by herself. Patient states she has been overwhelmed and has not slept well. Related Data Previous Rx's ?Medication ?Instructions ?Recorded acetaminophen 650 mg 650 mg PO Q8H PRN fever or p ain 06/15/20 tablet,extended release #30 tabs aluminum-mag hydroxide-simethicone 10 ml PO Q6H PRN dy spepsia #3,000 08/23/20 200 mg-200 mg-20 mg/5 mL oral susp mL (Maalox Advanced) azithromycin 250 mg tablet See Rx Instructions PO .COM PLEX #6 05/17/21 tabs ibuprofen 600 mg tablet 600 mg PO QID PRN fever or p ain 05/17/21 #30 tabs ibuprofen 800 mg tablet 800 mg PO TID PRN pain #30 t abs 10/11/22 naproxen 500 mg tablet 500 mg PO BID PRN pain #30 t abs 01/14/23 albuterol sulfate 90 mcg/actuation 1 inh inhalation QI D PRN shortness 04/11/24 aerosol inhaler of breath or wheezing #8.5 g lisa ibuprofen 600 mg tablet 600 mg PO Q6H PRN pain #30 t abs 04/11/24 ondansetron 4 mg disintegrating 4 mg PO Q8H PRN nausea and 09/06/24 tablet vomiting #14 tabs ibuprofen 600 mg tablet 600 mg PO Q8H PRN pain #30 t abs 09/21/24 [id number] 3.3 4 drp otic (ear) QID O titis 09/21/24 mg-3 mg-10 mg-0.5 mg/mL ear externa #10 mL drops,susp (Cortisporin-TC) Allergies Allergy/AdvReac Type Severity Reaction Status Date / Time No Known Allergies Allergy Verified 02/13/25 10:29 Review of Systems Review of Systems Systems Reviewed: All systems reviewed, normal except as documented Past Medical History Past Medical History NEUROLOGIC: Negative Neurological Disorders or Seizures CARDIAC: Negative Cardiac Disorders or Congestive Heart Failure RESPIRATORY: Positive Asthma; Negative Chronic Obstructive Pulmonary Disease (COPD) GENITOURINARY: Negative Renal Disease ENDOCRINE: Negative Diabetes Mellitus Type 1 or Diabetes Mellitus Type 2 HEMATOLOGIC: Negative Sickle Cell Disease PSYCHO/SOCIAL: Positive Anxiety OTHER HISTORY: Negative Blood Transfusions, Blood Transfusion Reaction or Anesthesia Reactions Social History SMOKING STATUS: Never smoker SUBSTANCE USE: does not use ED Exam Narrative Physical exam: VITAL SIGNS: Reviewed. GENERAL APPEARANCE: Alert and interactive, follows commands, no acute distress, HEAD AND FACE: Non-traumatic. ENT: PERRL, conjuctiva pink and clear, eyelid no trauma, Mucous membrane moist. NECK: Supple, nontender, no nuchal rigidity. CHEST: No tenderness, no crepitus, no paradoxical movement, no retractions. LUNGS: Clear, well ventilated, symmetric, no rales, no wheezing, no rhonchi, no stridor, good breath sounds bilaterally. HEART: Regular rate, regular rhythm, no murmur, no gallops. ABDOMEN: Soft, nondistended, no guarding, nontender NEUROLOGICAL: Gross motor function intact sensory function intact, Appropriate for age. MUSCULOSKELETAL: low back nontender, full range of motion. EXTREMITIES: No redness no swelling no skin breakdown on bilateral foot and leg. Distal neurovascular status intact bilateral foot SKIN: Color pink, dry, no rash, no lacerations, no abrasions, no contusions. Course Quality Measures none Orders Category Date Time Status LORazepam [Ativan] Med 02/07/25 14:46 Discontinued 1 mg PO X1 ONE Vital Signs Vital signs: Vital Signs Temperature 98.6 F 02/07/25 14:01 Pulse Rate 86 02/07/25 14:01 Respiratory Rate 18 02/07/25 14:01 Blood Pressure 119/80 02/07/25 14:01 Pulse Oximetry (%) 98 02/07/25 14:01 Oxygen Delivery Method Room Air 02/07/25 14:01 Discharge Plan Plan Patient Disposition: HOME (Self Care) Patient condition on transfer: Stable Prescriptions/Referrals Prescriptions/Med Rec: No Action acetaminophen 650 mg tablet extended release 650 mg PO Q8H PRN (Reason: fever or pain) Qty: 30 0RF Rx Instructions: swallow whole; do not chew/break/dissolve/open alum-mag hydroxide-simeth [Maalox Advanced] 200-200-20 mg/5 mL suspension 10 ml PO Q6H PRN (Reason: dyspepsia) Qty: 3000 0RF azithromycin 250 mg tablet See Rx Instructions .ROUTE .COMPLEX Qty: 6 0RF Rx Instructions: For 250 mg dose pack: take 500 mg today (day 1), then 250 mg for 4 days (days 2-5) ibuprofen 600 mg tablet 600 mg PO QID PRN (Reason: fever or pain) Qty: 30 0RF ibuprofen 800 mg tablet 800 mg PO TID PRN (Reason: pain) Qty: 30 0RF naproxen 500 mg tablet 500 mg PO BID PRN (Reason: pain) Qty: 30 0RF Cortisporin-TC 3.3-3-10-0.5 mg/mL drops,suspension 4 drp otic (ear) QID Qty: 10 0RF ibuprofen 600 mg tablet 600 mg PO Q8H PRN (Reason: pain) Qty: 30 0RF ibuprofen 600 mg tablet 600 mg PO Q6H PRN (Reason: pain) Qty: 30 0RF albuterol sulfate 90 mcg/actuation HFA aerosol inhaler 1 inh inhalation QID PRN (Reason: shortness of breath or wheezing) Qty: 8.5 0RF ondansetron 4 mg tablet,disintegrating 4 mg PO Q8H PRN (Reason: nausea and vomiting) Qty: 14 0RF Problem List Clinical Impression: Anxiety Patient/Caregiver Discharge Instructions Discharge Activity: activity as tolerated Education Materials: ED Anxiety Reaction Additional Instructions: Follow up with primary provider in 1-2 days. Come back to ED if symptoms change or worsen Print Language: Guamanian Stand Alone Forms: Che Award Info., Patient Portal Info Letter PA/SENIOR SUSTAINABILITY ADVISOR Supervising Physician ALISHA/SENIOR SUSTAINABILITY ADVISOR Supervising Physician: perla CROWELL Narrative MDM hospital course (for use when minimal MDM required): I spoke to patient at length. That would be a good idea for her to follow-up with her primary provider and talk to her about her anxiety. Explained to her that if she needs to be back on her medications discussed this with her primary doctor. Today patient is a band to help with her anxiety. Patient told to come back to the emergency room if symptoms change or worsen. Patient feels comfortable plan of care. Clinical Information Provided by: none Medical Records reviewed None Meds/Rx considered, not ordered None Labs/Rad/Tests considered, not ordered None Chronic Illness/Social Conditions which may negatively complicate care or outcome(s)-explain: None or not applicable Labs Labs: none Imaging Imaging interpretation: none Medication Administration(s) Medication Administration History Discontinued Medications Lorazepam (Lorazepam 0.5 Mg Tablet) 1 mg PO X1 ONE Stop: 02/07/25 14:47 Last Admin: 02/07/25 14:53 Dose: 1 mg Documented By: JHOAN See TRISHA Diagnosis Differential Diagnosis ED Complaint MDM: Adjustment disorder, panic, anxiety
== END 2025-02-07 16:38 | disposition home or self-care (01) ==
LOC: SERX 15:12
PROVIDERS: Emergency Provider Emergency Medicine; PCP Family Medicine
DX: F41.9 Anxiety disorder, unspecified (principal)
CPT/HCPCS: 99282; A9270

== ENCOUNTER 2025-02-13 10:26 | Emergency (ER) | payer MEDICAID, SELFPAY ==
[2025-02-13 10:27] VITALS: BMI 40.4
[2025-02-13 10:53] VITALS: BP 132/80; PULSE 80; RESP 18; TEMP 37; O2SAT 99
--- NOTE | 2025-02-13 11:15 | EDNOTE_ITS ---
Lower Extremity Injury RME/HPI General Chief Complaint: Ankle/Foot Injury Stated Complaint: RIGHT FOOT PAIN S/P STEP ON NEEDLE, C/O ITCHY Time Seen by Provider: 02/13/25 10:44 Source: patient Arrival date/time: 02/13/25 10:26 39-year-old female with no known medical history presents to the emergency room with a chief complaint of accidentally stepping on a needle while going on a walk this morning. Mode of arrival: ambulatory Limitations: no limitations Related Data Previous Rx's ?Medication ?Instructions ?Recorded acetaminophen 650 mg 650 mg PO Q8H PRN fever or p ain 06/15/20 tablet,extended release #30 tabs aluminum-mag hydroxide-simethicone 10 ml PO Q6H PRN dy spepsia #3,000 08/23/20 200 mg-200 mg-20 mg/5 mL oral susp mL (Maalox Advanced) azithromycin 250 mg tablet See Rx Instructions PO .COM PLEX #6 05/17/21 tabs ibuprofen 600 mg tablet 600 mg PO QID PRN fever or p ain 05/17/21 #30 tabs ibuprofen 800 mg tablet 800 mg PO TID PRN pain #30 t abs 10/11/22 naproxen 500 mg tablet 500 mg PO BID PRN pain #30 t abs 01/14/23 albuterol sulfate 90 mcg/actuation 1 inh inhalation QI D PRN shortness 04/11/24 aerosol inhaler of breath or wheezing #8.5 g lisa ibuprofen 600 mg tablet 600 mg PO Q6H PRN pain #30 t abs 04/11/24 ondansetron 4 mg disintegrating 4 mg PO Q8H PRN nausea and 09/06/24 tablet vomiting #14 tabs ibuprofen 600 mg tablet 600 mg PO Q8H PRN pain #30 t abs 09/21/24 [id number] 3.3 4 drp otic (ear) QID O titis 09/21/24 mg-3 mg-10 mg-0.5 mg/mL ear externa #10 mL drops,susp (Cortisporin-TC) Allergies Allergy/AdvReac Type Severity Reaction Status Date / Time No Known Allergies Allergy Verified 02/13/25 10:29 Review of Systems Review of Systems Systems Reviewed: All systems reviewed, normal except as documented Constitutional Constitutional: Reports system reviewed and no additional complaints, except as documented, Denies fatigue, Denies fever(s), Denies headache(s) and Denies weakness Eyes Eyes: Reports system reviewed and no additional complaints, except as documented, Denies blurry vision and Denies change in vision ENT Ears, Nose, Mouth, and Throat: Reports system reviewed and no additional complaints, except as documented, Denies otalgia, Denies headache(s), Denies nasal congestion, Denies throat swelling and Denies vertigo Cardiovascular Cardiovascular: Reports system reviewed and no additional complaints, except as documented, Denies chest pain, Denies dyspnea and Denies dyspnea on exertion Respiratory Respiratory: Reports system reviewed and no additional complaints, except as doc umented, Denies chest congestion, Denies cough, Denies dyspnea, Denies dyspnea on exertion and Denies wheezing Gastrointestinal Gastrointestinal: Reports system reviewed and no additional complaints, except as documented, Denies abdominal pain, Denies cramping, Denies nausea and Denies vomiting Genitourinary Genitourinary: Reports system reviewed and no additional complaints, except as documented Musculoskeletal Musculoskeletal: Reports system reviewed and no additional complaints, except as documented and Denies back pain Integumentary/Breasts Skin/Breast: Reports system reviewed and no additional complaints, except as documented and Denies wounds Neurologic Neurologic: Reports system reviewed and no additional complaints, except as documented, Denies confusion, Denies headache(s), Denies lack of coordination, Denies vertigo and Denies weakness Psychiatric Psychiatric: Reports system reviewed and no additional complaints, except as documented, Denies anxiety, Denies confusion, Denies depression, Denies paranoia, Denies suicidal ideation and Denies tactile hallucinations Endocrine Endocrine: Reports system reviewed and no additional complaints, except as documented and Denies fatigue Hematologic/Lymphatic Hematologic/Lymphatic: Reports system reviewed and no additional complaints, except as documented and Denies lymphadenopathy Allergic/Immunologic Allergic/Immunologic: Reports system reviewed and no additional complaints, except as documented, Denies throat swelling, Denies urticaria and Denies wheezing ED Exam General Limitations: Present no limitations General appearance: Present alert and in no apparent distress Head Head exam: Present atraumatic Eye Eye exam: Present normal appearance, PERRL and EOMI ENT ENT exam: Present normal exam, normal oropharynx and mucous membranes moist Neck Neck exam: Present normal inspection, full ROM and trachea midline Chest Chest inspection: Present normal inspection and symmetric chest wall rise Respiratory Respiratory exam: Present normal lung sounds bilaterally Cardiovascular Cardiovascular exam: Present regular rate, normal rhythm and normal heart sounds Abdominal Exam Abdominal exam: Present soft and normal bowel sounds Extremities Exam Extremities exam: Present normal inspection and full ROM Back Exam Back exam: Present normal inspection and full ROM Neurological Exam Neurological exam: Present alert, oriented X3 and CN II-XII intact Psychiatric Psychiatric exam: Present normal affect and normal mood Skin Skin exam: Present warm, dry, intact and normal color Course Quality Measures none Orders Category Date Time Status HIV (1&2) Antibody Rapid Stat Lab 02/13/25 11:14 Completed Hepatitis B Surface Ab Stat Lab 02/13/25 11:49 Completed Hepatitis C Antibody Stat Lab 02/13/25 11:49 Completed Hepatitis B Immune Globulin [Nabi-Hb Inj] Med 02/13/25 11:30 Discontinued 5.4 ml IM X1 ONE Hepatitis B Vacc [Engerix-B Vacc Adult] Med 02/13/25 11:30 Discontinued 20 mcg IMI .ONCE ONE TET,DIP/PERT AC (Adult)-Tdap [Boostrix Adult (Tdap) Med 02/13/25 10:59 Discontinued Vacc] 0.5 ml IMI .ONCE ONE Vital Signs Vital signs: Vital Signs Temperature 98.6 F 02/13/25 10:53 Pulse Rate 80 02/13/25 10:53 Respiratory Rate 18 02/13/25 10:53 Blood Pressure 132/80 H 02/13/25 10:53 Pulse Oximetry (%) 99 02/13/25 10:53 Oxygen Delivery Method Room Air 02/13/25 10:53 O2 saturation 100% within normal limits Extremity Injury, Lower MDM Narrative MDM Narrative:: 39-year-old female with no known medical history presents to the emergency room with a chief complaint of accidentally stepping on a needle while going on a walk this morning. Patient is hemodynamically stable and in no apparent distress Physical examination shows a small puncture wound to the sole of the patient's foot. Patient states this is an unknown needle that she accidentally stepped on while taking a walk this morning. Patient's labs were drawn and patient was educated to follow-up with her primary care provider regarding the results. Patient's hep B vaccination and tetanus vaccination were updated Patient was discharged and educated to follow-up with primary care provider in the next 24 to 48 hours and return to the emergency room for any evidence of worsening signs or symptoms Patient data External records reviewed:: [facility] previous records Clinical information provided by:: patient Social determinants that could affect healthcare access:: none Patient has the following chronic illnesses:: No chronic illness How is presenting disease/condition affected by chronic disease/condition?: no chronic disease Evaluation data The following diagnostics were reviewed and interpreted by me:: lab results and radiology exam(s) Lab and/or radiology exams considered but not ordered:: Labs and radiology exams considered and ordered Interpretation Summary: N/A Medications / Prescriptions Medications or Prescriptions considered but not ordered:: Medication given Medication administrations:: Medication Administration History Discontinued Medications Diphtheria/Tetanus/Acell Pertussis (Diphth,Pertuss(Acell),Tet Vac 0.5 Ml Syr- Adult) 0.5 ml IMi .ONCE ONE Stop: 02/13/25 11:00 Last Admin: 02/13/25 11:51 Dose: 0.5 ml Documented By: Hepatitis B Immune Globulin (Hepatitis B Immune Globulin 1 Ml Vial) 5.4 ml IM X1 ONE; Protocol Stop: 02/13/25 11:31 Last Admin: 02/13/25 11:52 Dose: 5.4 ml Documented By: Co-signed By: SHAHEEN Comments: 2.7ml given IM in each thigh Hepatitis B Vaccine (Hepatitis B Vacc 20 Mcg/Ml Syringe) 20 mcg IMi .ONCE ONE Stop: 02/13/25 11:31 Last Admin: 02/13/25 11:50 Dose: 20 mcg Documented By: Medication given Consultations Consultation(s) initiated? (list below): No Diagnosis Extremity Injury, Lower Differential Diagnosis: ankle sprain and strain and other (Needlestick injury) Most likely diagnosis given after review of the tests above:: Needlestick injury Admission Indicated Admission indicated?: not indicated Admission Request Was there a request for admission?: No Disposition Plan Disposition Plan: Discharge Discharge Attestation Discharge Attestation: The patient and all family members were given an opportunity to ask questions and understood the discharge instructions. Discharge instructions specifically effects, indications for sooner follow up or return to the emergency department, and the expected course of current diagnosis. Patient condition: Stable Discharge Plan Plan Patient Disposition: HOME (Self Care) Discharge Disposition comment: Stable Prescriptions/Referrals Prescriptions/Med Rec: No Action acetaminophen 650 mg tablet extended release 650 mg PO Q8H PRN (Reason: fever or pain) Qty: 30 0RF Rx Instructions: swallow whole; do not chew/break/dissolve/open alum-mag hydroxide-simeth [Maalox Advanced] 200-200-20 mg/5 mL suspension 10 ml PO Q6H PRN (Reason: dyspepsia) Qty: 3000 0RF azithromycin 250 mg tablet See Rx Instructions .ROUTE .COMPLEX Qty: 6 0RF Rx Instructions: For 250 mg dose pack: take 500 mg today (day 1), then 250 mg for 4 days (days 2-5) ibuprofen 600 mg tablet 600 mg PO QID PRN (Reason: fever or pain) Qty: 30 0RF ibuprofen 800 mg tablet 800 mg PO TID PRN (Reason: pain) Qty: 30 0RF naproxen 500 mg tablet 500 mg PO BID PRN (Reason: pain) Qty: 30 0RF Cortisporin-TC 3.3-3-10-0.5 mg/mL drops,suspension 4 drp otic (ear) QID Qty: 10 0RF ibuprofen 600 mg tablet 600 mg PO Q8H PRN (Reason: pain) Qty: 30 0RF ibuprofen 600 mg tablet 600 mg PO Q6H PRN (Reason: pain) Qty: 30 0RF albuterol sulfate 90 mcg/actuation HFA aerosol inhaler 1 inh inhalation QID PRN (Reason: shortness of breath or wheezing) Qty: 8.5 0RF ondansetron 4 mg tablet,disintegrating 4 mg PO Q8H PRN (Reason: nausea and vomiting) Qty: 14 0RF Problem List Clinical Impression: Needlestick injury accident Patient/Caregiver Discharge Instructions Additional Instructions: Please follow-up with your primary care provider in the next 24 to 48 hours Your labs were drawn you will need to follow-up with your primary care provider for your results. Your vaccinations were given here For any evidence of worsening signs or symptoms return to the emergency room immediately Print Language: Australian Stand Alone Forms: Che Award Info., Work/School Release, Patient Portal Info Letter PA/COMMERCIAL KITCHEN SERVICE TECHNICIAN Supervising Physician PA/COMMERCIAL KITCHEN SERVICE TECHNICIAN Supervising Physician: Dr. Olivarez
[2025-02-13] MEDS: DIPHTH,PERTUSS(ACELL),TET VAC 0.5 ML SYR- ADULT IMi (11:51)
[2025-02-13] MEDS: HEPATITIS B IMMUNE GLOBULIN 1 ML VIAL 5.4 ML IM (11:52)
[2025-02-13 12:26] LABS: HIV (1&2) Antibody Rapid Non-Reactive
[2025-02-13 13:27] LABS: Hepatitis B Surface Ab Reactive (Immune) (Immune); Hepatitis C Antibody Non Reactive (Non React)
== END 2025-02-13 12:59 | disposition home or self-care (01) ==
PROVIDERS: Emergency Provider Nurse Practitioner Family; PCP Family Medicine
DX: Z77.21 Contact with and (suspected) exposure to potentially hazardous body fluids (principal); W46.0XXA Contact with hypodermic needle, initial encounter; Y99.0 Civilian activity done for income or pay
CPT/HCPCS: 36415; 86703; 86706; 86803; 90371; 90471; 90472; 90715; 90746; 96372; 99283